=== PATIENT | female | born 1965 | race Hispanic/Latino ===

== ENCOUNTER 2018-06-29 11:05 | Day surgery (SDC) | payer SELFPAY ==
[~2018-06-29 11:05] MED LIST: ISOVUE-370 76%-LOCM 1 ML ONE
[2018-06-29 11:42] LABS: Bilirubin Negative (Negative); Blood, Urine Large (Negative); Glucose, Urine (Dipstick) Negative (Negative); Leukocyte Large (Negative); Nitrite Positive (Negative); Protein, Urine (Dipstick) 100 mg/dL (Neg-Trace); Specific Gravity, Urine 1.015 (1.005-1.030); Urobilinogen 0.2 mg/dL (0.2-1.0); pH, Urine 8.5 (5.0-9.0)
[2018-06-29 11:43] LABS: Clarity Hazy (Clear)
[2018-06-29 11:50] LABS: Bacteria/HPF 1+ HPF (None Seen); RBC/HPF 21-50 HPF (0-3); Squamous Epithelial 0-3 HPF (0-3); WBC/HPF 21-50 HPF (0-3)
[2018-06-29 11:51] LABS: Hyaline Casts/LPF NONE SEEN LPF (0-3 Hyaline)
[2018-06-29 11:57] LABS: #Eosinphils 0.1 thou/uL (0.0-0.7); #Lymphocytes 1.9 thou/uL (1.20-3.40); #Monocytes 0.7 thou/uL (0.11-0.59); #Neutrophils 9.2 thou/uL (1.40-6.50); %Basophils 0.3 % (0.0-1.0); %Eosinophils 0.7 % (0.0-10.0); %Lymphocytes 16.2 % (21.0-51.0); %Monocytes 5.7 % (0.0-10.0); %Neutrophils 77.1 % (42.0-75.0); Hemoglobin 15.2 g/dL (12.0-16.0); Mean Corpuscular Hemoglobin 29.6 pg (27.0-31.0); Mean Corpuscular Volume 89.8 fL (78.0-98.0); Mean Platelet Volume 9.2 fL (7.4-10.4); Platelet Count 244 thou/uL (130-400); RBC Distribution Width 12.5 % (11.5-14.5); Red Blood Cell (RBC) Count 5.15 mill/uL (4.20-5.40); White Blood Cell (WBC) Count 11.9 thou/uL (4.8-10.8)
[2018-06-29 12:20] LABS: ALT (SGPT) 24 U/L (8-55); AST (SGOT) 16 U/L (5-34); Albumin 4.3 g/dL (3.5-5.0); Alkaline Phosphatase 233 U/L (40-150); Anion Gap 13 mmol/L (10-20); BUN (Urea Nitrogen) 13 mg/dL (9.8-20.1); Bilirubin, Total 0.5 mg/dL (0.2-1.2); Calc. Creatinine Clearance 0 mL/min (70-130); Calcium 9.9 mg/dL (7.8-10.44); Carbon Dioxide 24 mmol/L (22-29); Chloride 107 mmol/L (98-107); Estimated GFR-MDRD 85; Globulin 3.6 g/dL (2.4-3.5); Glucose 96 mg/dL (70-105); Lipase 12 U/L (8-78); Potassium 3.6 mmol/L (3.5-5.1); Protein, Total 7.9 g/dL (6.0-8.3); Sodium 140 mmol/L (136-145)
[2018-06-29] MEDS ORDERED: Morphine 4 MG/ML VIAL ONE (13:09)
[2018-06-29] MEDS ORDERED: cefTRIAXone\\ROCEPHIN 1 GM VIAL ONE (13:10)
[2018-06-29] MEDS ORDERED: Sulfameth/Trimethoprim DS 800-160mg TAB ONE (13:10)
[2018-06-29] MEDS ORDERED: Lidocaine 1% PF 5 ML VIAL ONE (15:33)
[2018-06-29] MEDS ORDERED: PHENYLEPHRINE-NS 100 MCG/ML 10 ML SYRINGE ONE (15:33)
[2018-06-29] MEDS ORDERED: Glycopyrrolate 0.2 MG/ML 5 ML SYRINGE ONE (15:33)
[2018-06-29] MEDS ORDERED: PROPOFOL 200 MG/20 ML VIAL ONE (15:33)
--- NOTE | 2018-06-29 15:47 | CT ---
CONTRAST ENHANCED CT IMAGES ABDOMEN AND PELVIS: 06/29/18 HISTORY: Lower abdominal pain radiating to both flanks for three days. Dysuria. Cloudy urine. Contrast enhanced images of the abdomen and pelvis is obtained after the administration of IV contras t. The lung bases are unremarkable. No evidence of free intraperitoneal air or fluid seen. The liver, spleen, gallbladder, pancreas, adrenal glands, and kidneys demonstrate no definite evidenc e of masses. there is mild right sided hydroureteronephrosis. There is a 2.6 mm distal right ureteral calculus at the right ureterovesicular junction. This results in mild proximal ureteral dilatation. There is also minimal enhancement compatible with ureteritis on the right. There is also some minimal urinary bladder enhancement which may represent cystitis changes. A normal appearing appendix is seen. IMPRESSION: Mild ureteral dilatation and inflammatory process with obstructing distal right ureteral calculus is visualized. POS: SU
[2018-06-29] MEDS ORDERED: Iothalamate Meglumine 60% 50 ML VIAL FS ONE (18:06)
--- NOTE | 2018-06-29 18:09 | CON ---
DATE OF CONSULTATION: 06/29/2018 HISTORY OF PRESENT ILLNESS: This is a 52-year-old female, who started having pain in her right flank and right lower quadrant 4 days ago. No fevers or chills until today and no nausea. No vomiting. She has had a history of urinary tract infections, but she has been in this country for 6 [place] and she has not had any since she has been in this country, but she did have them in [place] before she moved. She came in, had a mildly elevated white count. Her urinalysis had showed bacteria, many white cells, and many red cells. She had a CAT scan done that showed a small right distal ureteral stone with some mild hydro. She had some evidence of some ureteral wall inflammation. She had no other stone seen in her kidneys. Her creatinine is normal. Her chemical survey is normal. She was a bit tachycardic and she does not appear to be tachycardic now, but she does have a temperature. Her son has acted as a regional education manager. She has had a prior abdominal hernia repair. She has not had a hysterectomy. She has had no other surgical procedures. She has had 10 children, all vaginal deliveries. She has what probably is acid reflux disease. She takes a medication for this. She denies any diabetes, high blood pressure, problems with cholesterol, or any other significant medical conditions. ALLERGIES: SHE HAS NO KNOWN DRUG ALLERGIES. SOCIAL HISTORY: She does not smoke. She does not drink. PHYSICAL EXAMINATION: GI: Her abdomen is mildly distended, but is soft. There is no rebound. There is no guarding. She does have some right flank discomfort and she has some right upper quadrant discomfort. With the aid of a piece of paper, I was able to draw a scenario that her son was able to explain to her and her . She has a distal stone. She has an obstructed kidney. She has urinary tract infection. She is probably starting to develop pyelonephritis. For this reason, she needs to have a stent done emergently. I have talked to the director child development center and got this put on. She is currently on the waiting list of procedures to be done tonight. She has received already Rocephin and we will ask that she also receive some vancomycin. I filled out the consent form that is at her bedside and signed that. So, the plan will be for emergent cysto, right retrograde, and right stent placement. She will receive Rocephin and vancomycin. Job ID: [id number]
[2018-06-29 18:47] LABS: Pregnancy Test - Urine (BHCG) Negative (Negative); Pregu Control Background? CLEAR/WHITE (CLR/WHITE); Pregu Control Bar Appear? YES (CONTROL BAR); Specific Gravity 1.015 (1.002-1.036)
[2018-06-29] MEDS ORDERED: Midazolam HCl 2 mg/2 ml Vial ONE (19:16)
[2018-06-29] MEDS ORDERED: Fentanyl 100 MCG/2 ML VIAL ONE ×2 (19:16→20:42)
--- NOTE | 2018-06-29 20:09 | RAD ---
RETROGRADE PYELOGRAM: 06/29/18 HISTORY: Right sided stent placement. FINDINGS: Ten images are provided. There is contrast media within partially opacified renal collecting system, right greater than left. A double-J ureteral stent is placed on the right. IMPRESSION: Retrograde pyelogram as above. POS: SU
--- NOTE | 2018-06-30 00:42 | OP ---
DATE OF PROCEDURE: 06/29/2018 PREOPERATIVE DIAGNOSIS: Right ureteral stone with urinary tract infection. POSTOPERATIVE DIAGNOSIS: Right ureteral stone with urinary tract infection. PROCEDURE PERFORMED: Cysto and retrograde right stent. ANESTHETIC: General. ESTIMATED BLOOD LOSS: Minimal. DRAINS PLACED: 4.8 x 24 cm right double-J stent without a string attach. FINDINGS: She has evidence of cystitis and some bladder inflammation and some submucosal nodularity. She had two ureteral orifices, could not see a stone on the right side. There was not any efflux on the right side. Her courtroom clerk KUB still showed contrast coming down in column dating at the right ureterovesical junction from prior CAT scan earlier today. OPERATIVE INDICATIONS: This is a 52-year-old female with about 4 days of right flank pain. No fevers or chills. Had a temperature in the recovery room and mildly elevated white count. Urinalysis consistent with at least urinary tract infection and CT scan that showed a very small right distal ureteral stone with [id number] hydro. She coming in now to have a stent placed because of the urinary tract infection. The plans will be to see how she does after a stent placement in terms of whether she will need to be admitted or not. She did receive 1 g of Rocephin and 1 g of vancomycin in the emergency center. OPERATIVE TECHNIQUE: After obtaining written and verbal consent from the patient after receiving IV antibiotics, she was taken to the operating suite. She was placed in the supine position on the treatment table. PlexiPulses were placed on her lower extremities and turned on. She was given a general anesthetic and oral obturator intubation. She was placed in the dorsal lithotomy position, sterilely prepped and draped for cystoscopy. Office Support Clerk KUB was taken with the fluoroscopy unit. A 22-Tristanian sheath was passed under direct vision with the aid of a 30-degree lens and video camera and monitor. The bladder was filled and emptied. There was evidence of cystitis. It was filled and emptied a number of times and then the right ureteral orifice was cannulated with a 5-Tristanian Dolomite catheter that has been flushed with contrast. About 3 mL of contrast were injected just slightly throughout the right collecting system and then, a guidewire was fed through the open-ended catheter up in the renal pelvis. The guidewire was then pushed all the way up into the renal pelvis. The open-ended catheter was removed and we drained about 5 mL of just a pink urine that had no odor to it and was not cloudy. We replaced the guidewire and then brought in the stent placing over the guidewire and pushing up to the place with aid of a pusher, so its proximal end coiled in the renal pelvis and its distal end coiled in the bladder when the wire was removed. It appeared to be effluxing urine without difficulty. The bladder was drained. The instruments were removed. She was taken out of dorsal lithotomy position, awakened, extubated, and taken by stretcher to recovery room. Job ID: [id number]
--- NOTE | 2018-07-01 20:53 | EKG ---
Test Reason : EMERGENCY Blood Pressure : / mmHG Vent. Rate : 067 BPM Atrial Rate : 067 BPM P-R Int : 140 ms QRS Dur : 076 ms QT Int : 382 ms P-R-T Axes : 052 015 032 degrees QTc Int : 403 ms Normal sinus rhythm Normal ECG Confirmed by MELO DAVIES, MONISHA Mancilla ([id number]), city editor JANET JIMENES ([id number]) on 07/01/2018 8:52:41 PM Referred By: Confirmed By:MONISHA ALEJO MD
== END 2018-06-29 23:00 | disposition home or self-care (01) ==
LOC: ERS 11:05
PROVIDERS: ATTEND Urology
PROC: BT1D1ZZ Fluoroscopy of Right Kidney, Ureter and Bladder using Low Osmolar Contrast (ICD-10-PCS; principal; 2018-06-29)
PROC: 0T768DZ Dilation of Right Ureter with Intraluminal Device, Via Natural or Artificial Opening Endoscopic (ICD-10-PCS; principal; 2018-06-29)
DX: N13.6 Pyonephrosis (principal); B96.20 Unspecified Escherichia coli [E. coli] as the cause of diseases classified elsewhere; I10 Essential (primary) hypertension; Z79.2 Long term (current) use of antibiotics
CPT/HCPCS: 74177; 74420; 80053; 81003; 81015; 81025; 83690; 85025; 87077; 87086; 87186; 93005; 96361; 96365; 96367; 96375; C1758; J0696; J2001; J2250; J2270; J2704; J3010; J3370; Q9961; Q9966

== ENCOUNTER 2018-07-05 07:08 | Day surgery (SDC) | payer SELFPAY ==
[2018-07-04 15:11] VITALS: BMI 23.4
[2018-07-05] MEDS ORDERED: Iothalamate Meglumine 60% 50 ML VIAL FS ONE (08:23)
[2018-07-05] MEDS ORDERED: Fentanyl 100 MCG/2 ML VIAL ONE (09:45)
[2018-07-05] MEDS ORDERED: Midazolam HCl 2 mg/2 ml Vial ONE (09:45)
[2018-07-05] MEDS ORDERED: PROPOFOL 200 MG/20 ML VIAL ONE (10:15)
[2018-07-05] MEDS ORDERED: Lidocaine 1% PF 5 ML VIAL ONE (10:15)
--- NOTE | 2018-07-05 11:53 | RAD ---
RETROGRADE PYELOGRAM THREE VIEWS: HISTORY: Right ureteral stone. FINDINGS: This is a series of three images, which show contrast injected into a nondilated right collecting sys tem. I do not see any definite renal or ureteral calculus. IMPRESSION: Unremarkable right retrograde pyelogram. POS: TPC
[2018-07-05] MEDS ORDERED: HYDROcodone/Acetaminophen 5/325 mg Tablet ONE (11:57)
--- NOTE | 2018-07-05 12:01 | OP ---
DATE OF PROCEDURE: 07/05/2018 PREOPERATIVE DIAGNOSES: Right distal ureteral stone and recent urinary tract infection. POSTOPERATIVE DIAGNOSES: Right distal ureteral stone and recent urinary tract infection. No stone seen. PROCEDURES PERFORMED: Cysto, right rigid ureteroscopy, right retrograde pyelogram, and stent removal. PATHOLOGY SENT: None. ANESTHESIA: General. ESTIMATED BLOOD LOSS: Minimal. DRAINS: None. DESCRIPTION OF PROCEDURE: Obtained written and verbal consent from the patient. After receiving 250 mg of IV Levaquin, she was taken to the operating suite. She was placed in supine position on the treatment table. PlexiPulses were placed on lower extremities and turned on. She was given a general anesthetic and oral obturator intubation. She was placed in dorsal lithotony position, sterilely prepped and draped. The fluoroscopy was positioned over her, and a elevated work platform operator film was taken. Cystoscopy was performed with a 22-Barbadian sheath. This was well lubricated and passed under direct vision through the female urethra into the urinary bladder with aid of 30-degree lens, video camera, and monitor. The bladder appeared normal. There was a stent exiting the right ureteral orifice. The inflammation, she previously had noted, has resolved. The distal end of double-J stent was grasped and removed through the urethral meatus. A guidewire was fed up through it. The stent was removed over the guidewire and discarded. A small caliber was graduated. Rigid ureteroscope was brought in and with the aid of video camera and monitor, it passed through the female urethra into the bladder and up the right ureter adjacent to the guidewire went all the way up to the UPJ, there were no stones seen, backed it out, looking also as we backed out, there were no stones seen. At this point, a 5-Barbadian pollack catheter was advanced over the guidewire. Guidewire was removed. We injected about 10 mL of contrast. There was no hydronephrosis. The collecting system filled up well. There were no filling defects along the course of the ureter and over about 8 to 10 minutes, the ureter appeared to drain well. For this reason, the stent was not replaced. She was taken out of dorsal lithotomy position, awakened, extubated, and taken by stretcher to recovery room. Job ID: [id number]
== END 2018-07-05 13:00 | disposition home or self-care (01) ==
LOC: SDC 07:08
PROVIDERS: ATTEND Urology
PROC: 0TP98DZ Removal of Intraluminal Device from Ureter, Via Natural or Artificial Opening Endoscopic (ICD-10-PCS; principal; 2018-07-05)
PROC: BT1D1ZZ Fluoroscopy of Right Kidney, Ureter and Bladder using Low Osmolar Contrast (ICD-10-PCS; 2018-07-05)
DX: N20.1 Calculus of ureter (principal); Z87.440 Personal history of urinary (tract) infections; Z79.2 Long term (current) use of antibiotics
CPT/HCPCS: 74420; C1758; J1956; J2001; J2250; J2704; J3010; Q9961

== ENCOUNTER 2020-12-23 14:38 | Emergency (ER) | payer OTHER, SELFPAY ==
[2020-12-23] MEDS ORDERED: Ibuprofen 200 MG TAB ONE (15:31)
== END 2020-12-23 16:34 | disposition home or self-care (01) ==
LOC: ERS 14:38
DX: M25.512 Pain in left shoulder (principal); M54.6 Pain in thoracic spine; I10 Essential (primary) hypertension; Z87.19 Personal history of other diseases of the digestive system; V89.2XXA Person injured in unspecified motor-vehicle accident, traffic, initial encounter